=== PATIENT | female | born 1945 | race Caucasian/White ===

== ENCOUNTER 2017-10-05 19:12 | Emergency (ER) | payer MEDICARE ==
[~2017-10-05] VITALS: Ht 154.9 cm; Wt 59.0 kg
[~2017-10-05 19:12] MED LIST: ACETAMINOPHEN PO; ACETAMINOPHEN325 M1 PO; ADVICOR 500 MG1 EACH PO; ALLOPURINOL 30300 M1 PO; AMBIEN 10 MG TA10 MG PO; Bupropion Hcl; CYMBALTA60 MG PO; ESTRACE2 MG PO; EXCEDRIN CAPLE1 EACH PO; FAMOTIDINE PO; FLEXERIL PO; FUROSEMIDE PO; GLUCOPHAGE500 MG PO; GLUCOSAMINE-CH1 EA33 PO; GREEN TEA1 EACH PO; IBUPROFEN 600600 M1 PO; LASIX 40 MG TAB40 M1 PO; LISINOPRIL5 MG PO; LYRICA100 MG PO; MEDROL DOSPAK21 TA1 PO; NEURONTIN600 MG PO; ONE DAILY WOME0.4 MG PO; PERCOCET 5-3251 EACH PO; PERCOCET 7.5-31 EACH PO; PROPRANOLOL 8080 MG PO; VICODIN 5-5001 EACH PO; VISTARIL 25 MG25 M1 PO; WELLBUTRIN PO
[2017-10-05 20:17] VITALS: BP 108/48
== END 2017-10-05 20:17 | disposition home or self-care (01) ==
LOC: M.ERS 19:12
DX: S40.012A Contusion of left shoulder, initial encounter (principal); G89.29 Other chronic pain; M54.9 Dorsalgia, unspecified; E11.9 Type 2 diabetes mellitus without complications; I10 Essential (primary) hypertension; G25.81 Restless legs syndrome; K21.9 Gastro-esophageal reflux disease without esophagitis; F32.9 Major depressive disorder, single episode, unspecified; Z90.710 Acquired absence of both cervix and uterus; Z90.49 Acquired absence of other specified parts of digestive tract; Z98.890 Other specified postprocedural states; W01.0XXA Fall on same level from slipping, tripping and stumbling without subsequent striking against object, initial encounter; Y93.89 Activity, other specified; Y92.89 Other specified places as the place of occurrence of the external cause; Y99.8 Other external cause status

== ENCOUNTER 2017-10-10 12:47 | Emergency (ER) | payer MEDICARE ==
[~2017-10-10] VITALS: Ht 154.9 cm; Wt 59.0 kg
[2017-10-10 13:10] LABS: ABSOLUTE BASOPHILS 0.1 thou/uL (0.0-0.2); ABSOLUTE EOSINOPHILS 0.5 thou/uL (0.0-0.7); ABSOLUTE LYMPHOCYTES 2.2 thou/uL (0.8-5.3); ABSOLUTE MONOCYTES 0.9 thou/uL (0.0-1.2); ABSOLUTE NEUTROPHILS 8.3 thou/uL (1.6-8.1); BASOPHILS 1.1 %; EOSINOPHILS 3.8 %; HEMATOCRIT 37.5 % (37.0-47.0); HEMOGLOBIN 12.1 gm/dL (12.0-15.0); LYMPHOCYTES 18.3 %; MCH 31.9 pg (26.0-34.0); MCHC 32.2 g/dL (28.0-37.0); MONOCYTES 7.3 %; MPV 7.9 fl. (7.2-11.1); NUCLEATED RBCS 0 /100WBC; PLATELET COUNT* 354 thou/uL (150-400); POLYS 69.5 %; RBC 3.79 mil/uL (4.20-5.00); RDW-CV 15.2 % (10.5-14.5); WBC 11.9 thou/uL (4.0-11.0)
[2017-10-10 13:15] LABS: ANION GAP 6 mmol/L (7-16); BUN 27 mg/dL (7-18); CALCIUM 8.2 mg/dL (8.5-10.1); CHLORIDE 96 mmol/L (98-107); CO2 26 mmol/L (21-32); CREATININE 0.9 mg/dL (0.6-1.3); GLUCOSE 279 mg/dL (70-99); POTASSIUM 4.5 mmol/L (3.5-5.1); SODIUM 128 mmol/L (136-145)
[2017-10-10 13:24] LABS: URINE BILIRUBIN NEGATIVE (Negative); URINE BLOOD NEGATIVE (Negative); URINE CLARITY CLEAR; URINE COLOR YELLOW; URINE GLUCOSE-RANDOM 3+ (Negative); URINE KETONES NEGATIVE (Negative); URINE LEUKOCYTES-REFLEX NEGATIVE (Negative); URINE NITRITE-REFLEX NEGATIVE (Negative); URINE PROTEIN NEGATIVE (Negative); URINE SPECIFIC GRAVITY <= 1.005 (1.005-1.030); URINE UROBILINOGEN 0.2 E.U./dl (0.2-1.0)
[2017-10-10 13:26] LABS: ALKALINE PHOSPHATASE 65 U/L (46-116); LIPASE 153 U/L (73-393); NT-PRO BRAIN NAT PEPTIDE 852 pg/mL (<300); SGOT 22 U/L (15-37); SGPT 25 U/L (30-65); TOTAL BILIRUBIN 0.2 mg/dL (<0.1-1.0); TOTAL PROTEIN 6.1 g/dL (6.4-8.2); TROPONIN-I LEVEL <0.06 ng/mL (<0.06)
--- NOTE | 2017-10-10 14:50 | EKG ---
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 : 1945 Requested By: Jean Paul Kirk Order Number: [id number] MD: Eros Montoya Measurements Intervals [place] Rate: 58 P: 55 MT: 246 QRS: 31 QRSD: 109 T: 42 QT: 402 QTc: 395 Interpretive Statements Sinus rhythm Prolonged MT interval Incomplete left bundle branch block Anterior Q waves, possibly due to ILBBB Baseline wander in lead(s) V3 Compared to ECG 12/07/2012 08:57:36 Left bundle-branch block now present Q waves now present Electronically Signed On 10-10-2017 14:49:55 CDT by Eros Montoya [email or web address] <ELECTRONICALLY SIGNED> By: Eros Montoya MD, [facility] 10/10/17 1449 1306 1306 Eros Montoya MD, [facility] /EPI
[2017-10-10 15:45] VITALS: BP 131/78
== END 2017-10-10 15:48 | disposition home or self-care (01) ==
LOC: M.ERS 12:47
PROVIDERS: Emergency Medicine
DX: E11.649 Type 2 diabetes mellitus with hypoglycemia without coma (principal); G89.29 Other chronic pain; M54.9 Dorsalgia, unspecified; I10 Essential (primary) hypertension; K21.9 Gastro-esophageal reflux disease without esophagitis; Z79.82 Long term (current) use of aspirin

== ENCOUNTER 2020-12-17 17:17 | Inpatient (IN) | payer OTHER ==
[~2020-12-17] VITALS: Ht 152.4 cm; Wt 68.0 kg
--- NOTE | ~2020-12-17 | CON ---
[address] [address] CONSULTATION Name: MARGARITO TY Room: [place] [address] ADM IN M.R.#: [id number] Admission: 12/17/20 Attend Phys: Otf Mendoza Discharge: Date of : 49 Report #: [id number] THIS REPORT FOR: cc: Sally Velez MD,Sally Clark,Hugo Bueno MD ~ DATE OF CONSULTATION: 12/18/2020 HISTORY OF PRESENT ILLNESS: This is a 75-year-old female patient who was admitted with some dizziness and speech difficulty. Her dizziness actually is better, but speech difficulty persists. She has woken up with these symptoms. She does not know anything, which makes it better or worse. She denies any prior history of stroke. REVIEW OF SYSTEMS: Positive for hypertension. She does not check her blood pressure very often, says she will check it when she is feeling dizzy and sometime it is high, it is never too low. She is a diabetic. She had some respiratory tract infection. She is a smoker and has been a smoker for a long time. There are multiple risk factors for the stroke. She had some shoulder problems in the past. She has a history of some back and leg pain. Today, she was able to ambulate without any problems. She has a history of depression, hysterectomy, appendectomy, cholecystectomy, lumpectomy. She has a part of the stomach removed. She also has something done with her vagus nerve. She has a history of restless leg syndrome. She did not have much ophthalmology symptoms associated with present symptomatology. She denies any chest pain, dermatological, hematological, throat symptom. A 14-point review of system was otherwise noncontributory. PAST MEDICAL HISTORY: Negative for stroke. FAMILY HISTORY: Negative for early age stroke. SOCIAL HISTORY: She smokes. PHYSICAL EXAMINATION: NEUROLOGIC: The patient's examination indicate that she is alert, responsive, able to follow simple and complex commands. Her speech does look somewhat slurred. She thinks her memory and fund of knowledge is at her baseline. Cranial nerve examination, 2-12 showed a question of weakness of the right side of the face, but that finding is not definite. Otherwise, strength, sensation, reflexes and tone is symmetrical, but she does poorly with the position sense on both sides and I cannot tell about plantar because she is too ticklish, but reflexes does appear to be somewhat diminished. Tone looks symmetrical. There is no cerebellar sign in the upper extremity. I could not look at her fundus. She is a moderately built individual. She does [place] [address] CONSULTATION Name: MELONYMARGARITO Amor Room: [address] IN M.R.#: [id number] Admission: 12/17/20 Attend Phys: Otf Mendoza Discharge: Date of : 49 Report #: [id number] of eyes, ears and face. Her hearing and vision looks adequate. NECK: She has no thyroid mass or carotid bruit. CARDIAC: Examination is unremarkable. RESPIRATORY: Examination does not show any respiratory difficulty. VITAL SIGNS: Blood pressure was low, but it has come up on 167/77, pulse is 59, temperature is 97.2 and respirations are 12. EXTREMITIES: Pulses are somewhat difficult to feel in the lower extremities. DIAGNOSTIC DATA: She had CTA and CT that showed no acute changes, but chronic white matter ischemic changes. CT angiogram was unremarkable. IMPRESSION AND PLAN: It is possible this patient has a small lacunar cerebrovascular accident. The history is not very impressive. She is not an intervention candidate because she woke up with a stroke and she was not a TPA candidate and if she has no thrombus, to have a thrombectomy done. Basically, we need to do the MRI. If MRI demonstrates a stroke, I will put her on a combination of aspirin and Plavix. If it does show chronic disease, then her vascular risk factors need to be controlled, especially the hypertension and we will see if she needs statin and she will need some other blood workup, which we will order. She already got aspirin. Thank you very much for this referral and we will follow the patient along with you. By: 1126 [id number] Clark MD /mina
[~2020-12-17 17:17] MED LIST changes: +METFORMIN HCL500 MG PO
[2020-12-17 17:30] VITALS: BP 185/110
[2020-12-17] MEDS ORDERED: LEVOTHYROXINE25 MC1 PO (17:45)
[2020-12-17] MEDS ORDERED: KAPSPARGO SPRIN50 MG PO (17:45)
[2020-12-17] MEDS ORDERED: PREVACID30 MG PO (17:46)
[2020-12-17] MEDS ORDERED: LIPITOR40 MG PO (17:46)
[2020-12-17] MEDS ORDERED: FOSAMAX 70 MG T70 MG PO (17:46)
[2020-12-17] MEDS ORDERED: INDOMETHACIN 2525 MG PO (17:46)
[2020-12-17 17:47] LABS: ABSOLUTE BASOPHILS 0.1 thou/uL (0.0-0.2); ABSOLUTE EOSINOPHILS 0.3 thou/uL (0.0-0.7); ABSOLUTE LYMPHOCYTES 3.6 thou/uL (0.8-5.3); ABSOLUTE MONOCYTES 0.6 thou/uL (0.0-1.2); ABSOLUTE NEUTROPHILS 6.2 thou/uL (1.6-8.1); BASOPHILS 1.2 %; EOSINOPHILS 3.1 %; HEMATOCRIT 38.1 % (37.0-47.0); HEMOGLOBIN 12.8 gm/dL (12.0-15.0); LYMPHOCYTES 32.9 %; MCH 31.7 pg (26.0-34.0); MCHC 33.6 g/dL (28.0-37.0); MCV 94.1 fL (80.0-100.0); MONOCYTES 5.6 %; MPV 8.2 fl. (7.2-11.1); NUCLEATED RBCS 0 /100WBC; PLATELET COUNT* 327 thou/uL (150-400); POLYS 57.2 %; RBC 4.05 mil/uL (4.20-5.00); RDW-CV 14.7 % (10.5-14.5); WBC 10.8 thou/uL (4.0-11.0)
[2020-12-17 17:55] LABS: CALCIUM 8.4 mg/dL (8.5-10.1); CREATININE 1.2 mg/dL (0.6-1.3); POTASSIUM 3.7 mmol/L (3.5-5.1)
[2020-12-17 18:06] LABS: ALBUMIN 3.3 g/dL (3.4-5.0); TOTAL BILIRUBIN 0.2 mg/dL (<0.1-1.0); TOTAL PROTEIN 6.6 g/dL (6.4-8.2)
--- NOTE | 2020-12-17 18:19 | NUR ---
SEE CODE STROKE SHEET
[2020-12-18 00:01] VITALS: BP 162/72
[2020-12-18 00:56] LABS: URINE BILIRUBIN NEGATIVE (Negative); URINE BLOOD NEGATIVE (Negative); URINE CLARITY CLEAR; URINE COLOR STRAW; URINE GLUCOSE-RANDOM NEGATIVE (Negative); URINE KETONES NEGATIVE (Negative); URINE LEUKOCYTES-REFLEX NEGATIVE (Negative); URINE NITRITE-REFLEX NEGATIVE (Negative); URINE PROTEIN NEGATIVE (Negative); URINE SPECIFIC GRAVITY <= 1.005 (1.005-1.030); URINE UROBILINOGEN 0.2 E.U./dl (0.2-1.0)
[2020-12-18 04:00] VITALS: BP 169/68
[2020-12-18 08:06] VITALS: BP 150/84
[2020-12-18 09:22] LABS: ALBUMIN 3.1 g/dL (3.4-5.0); CALCIUM 8.5 mg/dL (8.5-10.1); POTASSIUM 4.1 mmol/L (3.5-5.1); TOTAL BILIRUBIN 0.3 mg/dL (<0.1-1.0); TOTAL PROTEIN 6.2 g/dL (6.4-8.2)
--- NOTE | 2020-12-18 09:33 | EKG ---
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 : 1945 Requested By: Ganga Barney Order Number: [id number] MD: Dread Gomes Measurements Intervals [place] Rate: 66 P: 67 DE: 246 QRS: 6 QRSD: 97 T: 120 QT: 405 QTc: 425 Interpretive Statements Sinus rhythm Prolonged DE interval Consider left atrial enlargement LVH with secondary repolarization abnormality Anterior Q waves, possibly due to LVH Compared to ECG 10/10/2017 13:06:56 Left ventricular hypertrophy with repolarization now present Electronically Signed On 12-18-2020 9:33:34 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
[2020-12-18] MEDS ORDERED: DOXYCYCLINE 10100 M2 PO (10:00)
[2020-12-18] MEDS ORDERED: PREDNISONE 20 M20 MG PO (10:00)
--- NOTE | 2020-12-18 10:13 | NUR ---
DR. MORGAN PAGED REGARDING PT REQUEST FOR OUTPATIENT PNA TREATMENTS, MOSTLY INHALER, TO BE ORDERED VIA PAGING SYSTEM.
[2020-12-18 12:10] VITALS: BP 167/77
--- NOTE | 2020-12-18 12:24 | NUR ---
DR. MORGAN NOTIFIED OF PT'S MRI SHOWING POSITIVE FOR STROKE
[2020-12-18 16:00] VITALS: BP 206/91
--- NOTE | 2020-12-18 16:35 | NUR ---
DR. MORGAN PAGED REGARDING PT QUESTIONS OF PLAN OF CARE AND TEST RESULTS.
--- NOTE | 2020-12-18 17:00 | NUR ---
DR. REYES NOTIFIED OF PT'S MRI RESULTS.
--- NOTE | 2020-12-18 17:08 | 2DMMODE ---
[place] [address] 2 D/M-MODE ECHOCARDIOGRAM Name: MELONYMARGARITO E Room: [place] [address] ADM IN Live.#: [id number] Admission: 12/17/20 Attend Phys: Eliza Diaz Discharge: Date of : 49 Date of Service: 12/18/20 170 Report #: [id number] THIS REPORT FOR: cc: Sally Velez MD,Sally Gomes,Dread Wang MD [facility] ~ APPROVED REPORT Study performed: 12/18/2020 14:43:29 EXAM: Comprehensive 2D, Doppler, and color-flow Echocardiogram Patient Location: In-Patient Room #: ER Status: routine BSA: 1.65 HR: 66 bpm BP: 110/55 mmHg Rhythm: NSR Other Information Study Quality: Good Indications CVA/TIA Echo Enhancing Agent Indication: Rule out Shunt Agent(s) / Amount(s) Used: Agitated Saline 10 cc 2D Dimensions IVSd: 12.43 (7-11mm) LVOT Diam: 17.21 (18-24mm) LVDd: 36.73 mm PWd: 9.90 (7-11mm) Ascending Ao: 31.96 (22-36mm) LVDs: 19.42 (25-40mm) Aortic Root: 27.61 mm Volumes Left Atrial Volume (Systole) LA ESV Index: 24.20 mL/m2 Aortic Valve AoV Peak Cesar.: 1.28 m/s AO Peak Gr.: 6.59 mmHg LVOT Max P.11 mmHg AO Mean Gr.: 3.93 mmHg LVOT Mean P.36 [place] [address] 2 D/M-MODE ECHOCARDIOGRAM Name: MARGARITO TY Room: [address] IN [facility].#: [id number] Admission: 12/17/20 Attend Phys: Eliza Diaz Discharge: Date of : 49 Date of Service: 12/18/20 1708 Report #: [id number] LVOT Max V: 1.42 m/s AO V2 VTI: 33.84 cm LVOT Mean V: 0.97 m/s CATRACHITO (VTI): 2.19 cm2 LVOT V1 VTI: 31.84 cm Mitral Valve E/A Ratio: 0.75 MV Decel. Time: 263.14 ms MV E Max Cesar.: 0.69 m/s MV PHT: 76.31 ms MVA (PHT): 2.88 cm2 TDI E/Lateral E': 7.67 E/Medial E': 6.27 Medial E' Cesar.: 0.11 m/s Lateral E' Cesar.: 0.09 m/s Pulmonary Valve PV Peak Cesar.: 0.97 m/s PV Peak Gr.: 3.78 mmHg Left Ventricle The left ventricle is normal size. There is normal LV segmental wall motion. Mild septal hypertrophy is present. Left ventricular systolic function is normal. The left ventricular ejection fraction is within the normal range. LVEF is 65%. Grade I - abnormal relaxation pattern. Right Ventricle The right ventricle is normal size. The right ventricular systolic function is normal. Atria The left atrium size is normal. The interatrial septum is intact with no evidence for an atrial septal defect. The right atrium size is normal. Aortic Valve Mild aortic valve sclerosis. No aortic regurgitation is present. There is no aortic valvular stenosis. Mitral Valve The mitral valve is normal in structure. Trace mitral regurgitation. No evidence of mitral valve stenosis. Tricuspid Valve The tricuspid valve is normal in structure. Unable to assess PA pressure. [place] [address] 2 D/M-MODE ECHOCARDIOGRAM Name: MARGARITO TY Room: [address] IN [facility]#: [id number] Admission: 12/17/20 Attend Phys: Eliza Diaz Discharge: Date of : 49 Date of Service: 12/18/20 1708 Report #: [id number] Pulmonic Valve The pulmonary valve is normal in structure. There is no pulmonic valvular regurgitation. Great Vessels The aortic root is normal in size. IVC is normal in size and collapses >50% with inspiration. Pericardium There is no pericardial effusion. <Conclusion> LVEF is 65%. The interatrial septum is intact with no evidence for an atrial septal defect. <ELECTRONICALLY SIGNED> By: Dread Gomes MD, FACC 12/18/201707 07 07 Dread Gomes MD, FACC /INF
[2020-12-19] VITALS (7 sets, daily range): BP systolic 139–197; BP diastolic 64–91
--- NOTE | 2020-12-19 00:20 | NUR ---
DR STEPHENS CALLED RE: CONSULT
[2020-12-19 03:40] LABS: APTT 26.8 Seconds (25.0-31.3); PROTIME 10.1 Seconds (9.20-11.50)
[2020-12-19 03:45] LABS: CHOLESTEROL 161 mg/dL (<200); HDL CHOLESTEROL 36 mg/dL (>40); LDL CHOLESTEROL 86 mg/dL (<100); TC:HDL 4.5 Ratio (Not establshd); TRIGLYCERIDE 199 mg/dL (<150); VLDL 40 mg/dL (<40)
[2020-12-19 03:54] LABS: SERUM ASSESSMENT Clear
[2020-12-19 07:35] LABS: GLYCOHEMOGLOBIN (HGB A1C) 5.9 % (4.8-5.6)
--- NOTE | 2020-12-19 10:46 | NUR ---
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 Discussed Stroke education, and post discharge follow up. Patient concerned that speech difficutly is permanent. Waiting therapies evaluation. Answered questions.
--- NOTE | 2020-12-19 14:03 | NUR ---
PT ADMITTED TO UNIT FROM ED. PT IS PLEASANTLY A&OX4. PT IS UP AT SALTY. ASSESSMENT COMPLETED. BP 197/74 PRN HYDRALAZINE ADMINISTERED AND BP RECHECKED AND WAS 173/68. PT REPORTED SHE WAS DIAGNOSED WITH PNEUMONIA LAST WEEK AND FEELS BETTER BUIT CONTINUES WITH A PRODUCTIVE COUGH. SPUTUM NOT OBSERVED. PT REQUESTED SHOWER AND WAS ASSISTED REQUESTED.
--- NOTE | 2020-12-19 14:51 | NUR ---
Admit Assessment Plans for discharge after Neuro work up completed.PT/OT evals and tx ordered. Pt lives with and he was present in the room. Pt stated didn't feel she had any need for HH services. is very supportive (and she is for him) for needs at this time. 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 [facility]
[2020-12-19 18:06] LABS: ANA INTERPRETATION Negative (())
[2020-12-20 00:35] VITALS: BP 170/74
[2020-12-20 04:34] VITALS: BP 144/71
[2020-12-20 04:48] LABS: ABSOLUTE BASOPHILS 0.1 thou/uL (0.0-0.2); ABSOLUTE EOSINOPHILS 0.3 thou/uL (0.0-0.7); ABSOLUTE LYMPHOCYTES 4.5 thou/uL (0.8-5.3); ABSOLUTE MONOCYTES 0.9 thou/uL (0.0-1.2); ABSOLUTE NEUTROPHILS 5.6 thou/uL (1.6-8.1); BASOPHILS 0.6 %; EOSINOPHILS 2.2 %; HEMATOCRIT 39.6 % (37.0-47.0); HEMOGLOBIN 13.1 gm/dL (12.0-15.0); LYMPHOCYTES 39.9 %; MCH 31.1 pg (26.0-34.0); MCHC 33.2 g/dL (28.0-37.0); MCV 93.7 fL (80.0-100.0); MONOCYTES 7.9 %; MPV 8.5 fl. (7.2-11.1); NUCLEATED RBCS 0 /100WBC; PLATELET COUNT* 317 thou/uL (150-400); POLYS 49.4 %; RBC 4.22 mil/uL (4.20-5.00); WBC 11.4 thou/uL (4.0-11.0)
[2020-12-20 04:58] LABS: CALCIUM 9.2 mg/dL (8.5-10.1); CREATININE 1.2 mg/dL (0.6-1.3); POTASSIUM 3.7 mmol/L (3.5-5.1)
--- NOTE | 2020-12-20 05:33 | NUR ---
ASSUMED CARE OF PT AFTER REPORT AT 1930. PT A&OX4. VSS. PHYSICAL ASSESSMENT COMPLETED AND CHARTED. PT ON RA. PT TRACING SR/1STDEG ON TELE. PT UPADLIB TO RESTROOM. PT DENIES ANY PAIN. NIH CHARTED. CALL LIGHT WITHIN REACH.
[2020-12-20] MEDS ORDERED: BAYER CHEWABLE81 MG PO (07:58)
[2020-12-20] MEDS ORDERED: PLAVIX 75 MG TA75 M1 PO (07:58)
[2020-12-20] MEDS ORDERED: PROTONIX40 M2 PO (07:58)
[2020-12-20] MEDS ORDERED: CARVEDILOL12.5 MG PO (07:58)
[2020-12-20] MEDS ORDERED: LISINOPRIL20 MG PO (07:58)
[2020-12-20 08:00] VITALS: BP 151/68
[2020-12-20 10:36] VITALS: BP 151/68
[2020-12-20 13:01] VITALS: BP 151/68
[2020-12-20 13:16] VITALS: BP 151/68
--- NOTE | 2020-12-20 13:20 | NUR ---
ASSUMED CARE OF PT AT 0730. PT A&0X4, DENIES ANY PAIN OR SHORTNESS OF BREATH AT THIS TIME. TRACING SR WITH FIRST DEGREE ON THE COMMUNITY RESOURCE CONSULTANT. ON RA SAT UPPER 90'S. PT UP AD SALTY IN ROOM. NIH-0. DISCHARGE ORDERS RECEIVED. DISCHARGE INSTRUCTIONS, CARE NOTES, E SCRIPTS AND FOLLOW UP APPTS GIVEN TO PT. PT COMMUNICATES UNDERSTANDING OF DISCHARGE TEACHING. IV AND COMMUNITY RESOURCE CONSULTANT REMOVED. PT DISCHARGED WITH ALL BELONGINGS AND PAPERWORK VIA WHEELCHAIR WITH NURSING STAFF TO SPOUSE OWN PERSONAL VEHICLE. PT REFUSED HOME HEALTH. EDUCATION GIVEN.
== END 2020-12-20 13:24 | disposition home or self-care (01) | DRG 65 ==
LOC: M.ERS 17:17 → M.TBA-ER 18:14 → M.2W 12-19 12:09
PROVIDERS: Family Medicine; Internal Medicine; Psychiatry & Neurology Neuromuscular Medicine; ADMIT Internal Medicine; ATTEND Internal Medicine
DX: I63.81 Other cerebral infarction due to occlusion or stenosis of small artery (principal); E44.1 Mild protein-calorie malnutrition; Z20.822 Contact with and (suspected) exposure to COVID-19; G89.29 Other chronic pain; M54.9 Dorsalgia, unspecified; E11.9 Type 2 diabetes mellitus without complications; I10 Essential (primary) hypertension; F17.210 Nicotine dependence, cigarettes, uncomplicated; M19.90 Unspecified osteoarthritis, unspecified site; K21.9 Gastro-esophageal reflux disease without esophagitis; F32.9 Major depressive disorder, single episode, unspecified; Z90.710 Acquired absence of both cervix and uterus; Z90.49 Acquired absence of other specified parts of digestive tract; Z90.3 Acquired absence of stomach [part of]; Z68.29 Body mass index [BMI] 29.0-29.9, adult; Z87.01 Personal history of pneumonia (recurrent)